=== PATIENT | female | born 1995 | race Caucasian/White ===

== ENCOUNTER 2019-06-24 13:24 | Emergency (ER) | payer OTHER ==
[~2019-06-24] VITALS: Ht 170.2 cm; Wt 72.6 kg
[~2019-06-24 13:24] MED LIST: LEXAPRO20 MG PO
[2019-06-24] MEDS ORDERED: PLAQUENIL200 MG PO (13:36)
[2019-06-24] MEDS ORDERED: PREDNISONE5 MG PO (13:36)
== END 2019-06-24 14:08 | disposition home or self-care (01) ==
LOC: ED 13:24
DX: J10.1 Influenza due to other identified influenza virus with other respiratory manifestations (principal); F41.9 Anxiety disorder, unspecified; Z79.899 Other long term (current) drug therapy; Z79.52 Long term (current) use of systemic steroids
CPT/HCPCS: 99283